=== PATIENT | female | born 1970 | race Caucasian/White ===

== ENCOUNTER 2023-02-26 04:28 | Emergency (ER) | payer OTHER ==
[~2023-02-26] VITALS: Ht 157.5 cm; Wt 78.5 kg
[2023-02-26 04:35] VITALS: BP_SYST 188; BP_SYST 190; BP_DIAS 87; BP_DIAS 97; PULSE 67; RESP 20; TEMP 97.6; O2SAT 99
[2023-02-26] MEDS ORDERED: LORazepam 2 MG/ML VIAL IM ONE (04:45)
[2023-02-26] MEDS ORDERED: hydrALAZINE 20 MG/ML VIAL IVP ONE (05:50)
[2023-02-26] MEDS ORDERED: NITROGLYCERIN 2% 1 GM PKT TP ONE (06:15)
[2023-02-26] MEDS ORDERED: ASPIRIN 325 MG TAB PO ONE (06:15)
[2023-02-26] MEDS ORDERED: MORPHINE SULFATE 4 MG/ML SYR IVP ONE (07:05)
[2023-02-26 07:12] LABS: BASOPHILS % (AUTO) 0.4 % (0.0-2.0); EOSINOPHILS % (AUTO) 0.5 % (0.0-4.0); HEMATOCRIT 46.2 % (36-48); HEMOGLOBIN 15.6 g/dL (12.0-16.0); LYMPHOCYTES # (AUTO) 1.6 K/uL (2.5-16.5); MEAN CORPUSCULAR HEMOGLOBIN 30 pg (27-31); MEAN CORPUSCULAR HGB CONC 34 g/dL (33-37); MEAN CORPUSCULAR VOLUME 89.9 fL (80-94); MONOCYTES # (AUTO) 0.3 K/uL (0.8-1.0); MONOCYTES % (AUTO) 3.3 % (1.7-9.3); NEUTROPHILS # (AUTO) 8.1 K/uL (1.8-7.7); NEUTROPHILS % (AUTO) 79.8 % (42.2-75.2); PLATELET COUNT (AUTO) 293 K/uL (140-450); RED BLOOD CELL COUNT(AUTO) 5.14 MIL/uL (4.20-5.40); RED CELL DISTRIBUTION WIDTH 13.6 % (11.6-13.7); WHITE BLOOD COUNT (AUTO) 10.1 K/uL (4.8-10.8)
[2023-02-26 07:38] LABS: ALANINE AMINOTRANSFERASE 32 U/L (12-78); ALBUMIN 3.5 g/dL (3.4-5.0); ALKALINE PHOSPHATASE 154 U/L (50-136); ANION GAP 13.4 (8-16); ASPARTATE AMINOTRANSFERASE 25 U/L (15-37); CALCIUM 9.1 mg/dL (8.5-10.1); CARBON DIOXIDE 27.5 mmol/L (21-32); CHLORIDE 102 mmol/L (98-107); CREATININE 0.7 mg/dL (0.6-1.3); GFR ARICAN-AMERICAN 112 mL/min (>90); GFR NON ARICAN-AMERICAN 93 mL/min (>90); GLUCOSE 146 mg/dL (74-106); POTASSIUM 3.9 mmol/L (3.5-5.1); SODIUM SERUM 139 mmol/L (136-145); TOTAL BILIRUBIN 0.5 mg/dL (0.0-1.0); TOTAL PROTEIN, SERUM 7.9 g/dL (6.4-8.2); UREA NITROGEN, BLOOD 10 mg/dL (7-18)
[2023-02-26 08:15] VITALS: BP 118/68; PULSE 96; RESP 23; TEMP 97.8; O2SAT 92
== END 2023-02-26 08:15 | disposition short-term general hospital (02) ==
LOC: MED 04:28
DX: I21.19 ST elevation (STEMI) myocardial infarction involving other coronary artery of inferior wall (principal); I21.09 ST elevation (STEMI) myocardial infarction involving other coronary artery of anterior wall; F41.9 Anxiety disorder, unspecified; R07.0 Pain in throat; Z79.899 Other long term (current) drug therapy; E11.9 Type 2 diabetes mellitus without complications; I10 Essential (primary) hypertension; Z79.4 Long term (current) use of insulin
CPT/HCPCS: 36415; 70490; 80053; 82948; 84484; 85025; 96372; 96374; 96375; 99291; J0360; J2060; J2270